=== PATIENT | female | born 1970 | race Caucasian/White ===

== ENCOUNTER 2016-04-21 18:12 | Emergency (ER) | payer OTHER ==
[2016-04-21 18:27] VITALS: BP 105/52; PULSE 64; RESP 16; TEMP 97.7; O2SAT 96
[2016-04-21] MEDS ORDERED: TDAP ADULT 0.5 ML INJ (BOOSTRIX) IM ONE (18:50)
--- NOTE | 2016-04-21 18:56 | UCPHY ---
H & P Time Seen by Provider: 04/21/16 18:41 Patient Type: New HPI/ROS: CHIEF COMPLAINT: Finger injury HPI: The patient is a 45-year-old female with no significant past medical history. Approximately 45 minutes ago, she accidentally sliced open her left middle finger on a spiralizer. She reports continued bleeding from the finger as well as pain. She denies other injury. Her tetanus status is unknown. REVIEW OF SYSTEMS: Aside from elements discussed in the HPI, a comprehensive 10-point review of systems was reviewed and is negative. PMH: History of alopecia. SOCIAL HISTORY: , denies drug abuse. FAMILY HISTORY: Reviewed, noncontributory PHYSICAL EXAM: General:Patient is alert, in no acute distress. Extremities: Left middle finger: Skin avulsion and fingernail avulsion is present with moderate active bleeding. No clear wound edges are present for approximation. Distal capillary refill is normal. Neuro: Oriented x3. Normal motor function. Normal sensory function. Smoking Status: Former smoker Constitutional: Initial Vital Signs Temperature (C) 36.5 C 04/21/16 18:20 Heart Rate 64 04/21/16 18:20 Respiratory Rate 16 04/21/16 18:20 Blood Pressure 105/52 L 04/21/16 18:20 O2 Sat (%) 96 04/21/16 18:20 O2 Delivery Mode Room Air Allergies/Adverse Reactions: No Known Allergies Allergy (Verified 04/21/16 18:19) Home Medications: Medication Instructions Recorded Aspirin 04/21/16 FOLIC ACID 04/21/16 Methotrexate 04/21/16 VITAMIN D 04/21/16 Vytorin 10-10 mg Tablet 04/21/16 Medical Decision Making ED Course/Re-evaluation: This patient presents with avulsion of finger tip and nail with active bleeding. I directed the care staff to place Surgicel on the wound and at the patient's request some topical lidocaine. A tube gauze was placed by the emergency department motorsports technician. I see no indication for suture repair. I discussed strict return precautions with the patient and her . Departure - Departure Clinical Impression: Fingernail avulsion Qualifiers: Encounter type: initial encounter Qualifier Code: (S61.309A) Unspecified open wound of unspecified finger with damage to nail, initial encounter Instructions: Nail Avulsion (ED) Additional Instructions: Keep dressing on for next 48-72 hours. After that, bandaid and neosporin-type ointment is fine. Follow-up with your doctor within one week for any issues. Return to the ED for fever, bleeding or other concerns. [place],. [Primary Care Provider] - As per Instructions - PQRS PQRS Measurement: 134: Depression screening and followup, PRIME MD-PHQ2 (12 years and older) Over the last 2 weeks, how often have you been bothered by any of the following problems? 1. Feeling down, depressed, or hopeless? 2. Little interest or pleasure in doing things? Patient answered no to both 1 and 2 130: Documentation of medications. Reviewed all patient medications, doses, route and frequency. 226: Do you smoke? No. 51: 18 years old and older with diagnosis of COPD, spirometry performance. Spirometry not performed; equipment not available. Patient has no history of COPD 52: 18 years old and older with COPD and symptoms of COPD or FEV1<60% predicted prescribed a B Agonist. Spirometry not performed; equipment not available.
[2016-04-21] MEDS ORDERED: HYDROCOD/APAP 5/325 PREPACK#6 BTL TAKEHOME ONE (19:25)
== END 2016-04-21 19:27 | disposition home or self-care (01) ==
LOC: CED 18:12
DX: S61.312A Laceration without foreign body of right middle finger with damage to nail, initial encounter (principal); W27.4XXA Contact with kitchen utensil, initial encounter; Y92.019 Unspecified place in single-family (private) house as the place of occurrence of the external cause; Y99.8 Other external cause status; Z87.891 Personal history of nicotine dependence; Z23 Encounter for immunization
CPT/HCPCS: 99203-PO; G0463-PO

== ENCOUNTER → 2017-10-03 | Outpatient (CLI) | payer OTHER | LOC: FIMAGING 14:47 | PROVIDERS: ATTEND Obstetrics & Gynecology | DX: Z12.31 Encounter for screening mammogram for malignant neoplasm of breast (principal) ==